=== PATIENT | male | born 1980 | race Caucasian/White ===

== ENCOUNTER 2017-12-13 10:30 | Emergency (ER) | END 2017-12-13 17:30 | disposition home or self-care (01) ==

== ENCOUNTER 2019-05-28 12:48 | Emergency (ER) | payer MEDICAID ==
[~2019-05-28] VITALS: Ht 167.6 cm; Wt 85.2 kg
[~2019-05-28 12:48] MED LIST: ACET325T33 PO; BACL10TA PO; IBUP-1542 PO
[2019-05-28 12:49] VITALS: Ht 167.6 cm; Wt 85.2 kg
[2019-05-28] MEDS ORDERED: HYDROCODONE/APAP (5/325) TAB PO ONE (14:30)
[2019-05-28] MEDS ORDERED: IBUPROFEN 200 MG TAB PO ONE (14:30)
--- NOTE | 2019-05-28 14:34 | ERD ---
ER Documentation Chief Complaint Chief Complaint back pain x 3 days HPI 38-year-old male, presents the emergency department, complaining of bilateral lower back pain for 3 days. No history of direct trauma, but the patient refers working on his knees for more than 4 consecutive hours. The pain is dull, constant, aggravated by lateral rotation and flexion. He denies fever, chills, no rashes, no distal weakness, numbness or tingling. ROS All systems reviewed and are negative except as per history of present illness. Medications Home Meds Active Scripts Acetaminophen* (Tylenol*) 325 Mg Tablet, 2 TAB PO Q6 PRN for PAIN AND OR ELEVATED TEMP, #20 TAB Prov:CL GE MD 05/28/19 Ibuprofen* (Motrin*) 600 Mg Tab, 600 MG PO Q6H PRN for PAIN AND OR ELEVATED TEMP, #30 TAB Prov:CL GE MD 05/28/19 Baclofen* (Baclofen*) 10 Mg Tablet, 10 MG PO QHS, #10 TAB Prov:CL GE MD 05/28/19 Ibuprofen* (Motrin*) 600 Mg Tab, 600 MG PO Q6, #30 TAB Prov:CHEIKH NAIK PA-C 12/13/17 Allergies Allergies: Coded Allergies: No Known Allergy (Unverified , 05/28/19) PMhx/Soc Medical and Surgical Hx: pt denies Medical Hx Hx Alcohol Use: No Hx Substance Use: No Hx Tobacco Use: No FmHx Family History: No diabetes, No coronary disease Physical Exam Vitals Vital Signs Date Temp Pulse Resp B/P (MAP) Pulse Ox O2 O2 Flow FiO2 Time Delivery Rate 05/28/19 98.0 70 18 112/67 98 Room Air 15:40 (82) 05/28/19 97.6 71 18 119/67 98 12:49 (84) Physical Exam Patient is in no acute distress, vital signs stable. Alert and fully oriented. EYES: PERRLA, EOMI, Sclera and conjunctiva appear normal. EARS: Canals clear, tympanic membranes WNL THROAT: Normal oropharynx. NECK: Supple, No lymphadenopathy. Full ROM without pain or tenderness. HEART: RRR, no rubs, murmurs, clicks or gallops. LUNGS: Clear to auscultation. ABDOMEN: Soft, non-tender without masses or hepatosplenomegaly. EXTREMITIES: No edema bilaterally. BACK: Normal inspection, no bruises, no rashes, no deformity, decreased range of motion for lateral rotation and flexion. No vertebral tenderness, bilateral lower muscle spasm. NEURO: Cranial nerves grossly intact, no motor or sensory deficit Results 24 hrs Laboratory Tests Test 05/28/19 14:42 Urine Color YELLOW Urine Clarity CLEAR Urine pH 5.0 Urine Specific [place] 1.011 Urine Ketones NEGATIVE mg/dL Urine Nitrite NEGATIVE mg/dL Urine Bilirubin NEGATIVE mg/dL Urine Urobilinogen NEGATIVE mg/dL Urine Leukocyte Esterase NEGATIVE Carm[place]/ul Urine Hemoglobin NEGATIVE mg/dL Urine Glucose NEGATIVE mg/dL Urine Total Protein NEGATIVE mg/dl Current Medications Medications Dose Sig/Constantino Start Time Status Last (Trade) Ordered Route PRN Stop Time Admin Dose Reason Admin Ibuprofen 400 mg ONCE ONCE 05/28/19 DC 05/28/19 (Motrin) PO 14:30 14:41 05/28/19 14:37 1 tab ONCE ONCE 05/28/19 DC 05/28/19 Acetaminophen PO 14:30 14:41 / 05/28/19 14:37 Hydrocodone Bitart ([place] (5/325)) Procedures/MDM At the time of discharge, patient nontoxic, ambulating, vital signs stable, no gross neurologic deficit. differential diagnosis include but not limited to: lumbar sprain/strain, sciatica, herniated disk, UTI less likely pyelo, kidney stone. Neurovascular exam grossly intact. no clinical findings suggestive of acute infectious process, no acute deformity, no edema, no rashes. Physical examination and clinical presentation consistent most likely with acute lumbar pain secondary to degenerative disc disease. During the ED course the patient received treatment with ibuprofen and [place] presenting overall improvement of the symptoms. Results and clinical impression discussed with the patient who agrees with management. The patient is stable to be treated outpatient and will be discharged home with recommendations and close monitoring The patient was informed that the evaluation in the emergency department has been done to rule out an acute emergency, therefore, chronic conditions like malignancy or autoimmune diseases have not been evaluated; therefore, the patient was instructed to follow up with the primary care provider in the next 48h. If symptoms persist, worsen or new symptoms develop, then patient should return to the ED immediately. Instructions explained and given to patient with acknowledgment and demonstrated understanding. Disclaimer: Inadvertent spelling and grammatical errors are likely due to EHR/dictation software use and do not reflect on the overall quality of patient care. Also, please note that the electronic time recorded on this note does not necessarily reflect the actual time of the patient encounter. Departure Diagnosis: Primary Impression: Degenerative disk disease Condition: Stable Additional Instructions: Muchas kimberly por [facility] para cabrera servicio. Esperamos que en cabrera visita a la mark de emergencia cabrera problema medico haya sido solucionado y que se sienta mucho mejor. Para estar seguros que cabrera mejoria sigue en proceso, le pedimos el favor de hacer tammie gonzález de seguimiento medico con cabrera doctor primario en los proximos 2-4 shaw. Lleve con usted estos documentos y las medicinas recetadas. Si bulmaro sintomas empeoran, NO SE ESPERE, por favor regrese a mark de emergencia INMEDIATAMENTE. En galilea que usted no tenga un mdico de atencin primaria: Llame al mdico o clnica comunitaria de referencia que aparece [place] las horas de consultorio para hacer tammie gonzález para que le vean. CLINICAS: [facility] [phone] [facility] [phone] [facility] [phone] [facility] [phone] [place] [id number] [phone] [facility]. [phone] CL PASTRANA MD May 28, 2019 14:34
[2019-05-28 15:40] VITALS: BP 112/67; PULSE 70; RESP 18
== END 2019-05-28 15:44 | disposition home or self-care (01) ==
LOC: FTE 12:48
DX: M51.36 Other intervertebral disc degeneration, lumbar region (principal)
CPT/HCPCS: 72100; 81003; Z7502; Z7610